=== PATIENT | female | born 1970 | race African-American/Black ===

== ENCOUNTER → 2016-12-17 | Outpatient (CLI) | payer OTHER | END | disposition home or self-care (01) | LOC: CT 10:28 | PROC: BN25ZZZ Computerized Tomography (CT Scan) of Facial Bones (ICD-10-PCS; principal; 2016-12-17) | PROC: BN26ZZZ Computerized Tomography (CT Scan) of Mandible (ICD-10-PCS; 2016-12-17) | DX: S05.11XA Contusion of eyeball and orbital tissues, right eye, initial encounter (principal); X58.XXXD Exposure to other specified factors, subsequent encounter ==

== ENCOUNTER 2016-12-27 18:00 | Emergency (ER) | payer OTHER ==
[~2016-12-27] VITALS: Ht 162.6 cm; Wt 79.4 kg
[2016-12-27 19:16] LABS: BASOPHIL % 0.9 % (0-2); PLATELET COUNT 202 x10^3mcL (130-400); RED CELL DISTRIBUTION WIDTH 12.8 % (11.5-14.5)
[2016-12-27 19:25] LABS: CALCIUM 8.3 mg/dL (8.5-10.1); CREATININE SERUM 1.5 mg/dL (0.6-1.0); POTASSIUM SERUM 4.2 mmol/L (3.5-5.1)
[2016-12-27 19:29] LABS: BILIRUBIN TOTAL 0.4 mg/dL (0.20-1.00); TOTAL PROTEIN, SERUM 6.7 g/dL (6.4-8.2)
[2016-12-27 19:30] LABS: ALBUMIN 3.3 g/dL (3.4-5.0)
[2016-12-27 21:54] VITALS: BP 128/78
== END 2016-12-27 21:54 | disposition home or self-care (01) ==
LOC: ED 18:00
PROVIDERS: Emergency Medicine
DX: R11.10 Vomiting, unspecified (principal); R19.7 Diarrhea, unspecified; E03.9 Hypothyroidism, unspecified; I10 Essential (primary) hypertension; E78.5 Hyperlipidemia, unspecified; Z98.51 Tubal ligation status; Z88.6 Allergy status to analgesic agent
CPT/HCPCS: C9113; J0500; J2270; J2405; J7030

== ENCOUNTER 2017-02-02 14:51 | Inpatient (IN) | payer OTHER ==
[~2017-02-02] VITALS: Ht 162.6 cm; Wt 80.1 kg
[2017-02-02 16:36] LABS: BASOPHIL % 0.5 % (0-2); PLATELET COUNT 227 x10^3mcL (130-400); RED CELL DISTRIBUTION WIDTH 13.4 % (11.5-14.5)
[2017-02-02 16:49] LABS: CALCIUM 9.3 mg/dL (8.5-10.1); CARBON DIOXIDE 26.1 mmol/L (21-32); CHLORIDE SERUM 108 mmol/L (98-107); CREATININE SERUM 0.8 mg/dL (0.6-1.0); GFR1 > 60 mL/min; GLUCOSE SERUM 95 mg/dL (74-106); POTASSIUM SERUM 3.5 mmol/L (3.5-5.1); SODIUM SERUM 143 mmol/L (136-145)
[2017-02-02 16:54] LABS: ALBUMIN 4.1 g/dL (3.4-5.0); ALKALINE PHOSPHATASE 64 U/L (46-116); ALT/SGPT 27 U/L (14-59); AST/SGOT 16 U/L (15-37); BILIRUBIN TOTAL 0.56 mg/dL (0.20-1.00); MAGNESIUM 1.9 mg/dL (1.8-2.4); TOTAL PROTEIN, SERUM 7.5 g/dL (6.4-8.2)
[2017-02-02] MEDS ORDERED: ATENOLOL50 MG PO (18:28)
[2017-02-02] MEDS ORDERED: LEVOXYL0.088 MG PO (18:28)
[2017-02-02 20:19] VITALS: BP 144/89
[2017-02-02 20:22] VITALS: Ht 162.6 cm; Wt 80.1 kg
[2017-02-02 20:23] LABS: PHOSPHOROUS 3.3 mg/dL (2.5-4.9)
[2017-02-02 20:32] LABS: CHOLESTEROL/HDL RATIO 2.3
[2017-02-02 20:45] LABS: FREE T4 0.98 ng/dL (0.76-1.46); FREE THYROXINE INDEX 2.8 ug/dL (1.4-4.5); T4(THYROXINE) 7.5 ug/dL (4.7-13.3)
[2017-02-02 20:50] LABS: T3 TOTAL 0.8 ng/mL
[2017-02-02] MEDS ORDERED: BUSPIRONE HCL15 MG PO (21:12)
[2017-02-02] MEDS ORDERED: KLONOPIN2 MG PO (21:12)
[2017-02-02] MEDS ORDERED: AMBIEN5 MG PO (21:13)
[2017-02-02] MEDS ORDERED: CARISOPRODOL350 MG PO (21:14)
[2017-02-02 23:38] VITALS: BP 154/93
[2017-02-03 05:20] VITALS: BP 154/91
[2017-02-03 06:03] LABS: microscopic required? NO
[2017-02-03 06:16] LABS: CALCIUM 8.5 mg/dL (8.5-10.1); CHLORIDE SERUM 108 mmol/L (98-107); CREATININE SERUM 0.8 mg/dL (0.6-1.0); GFR1 > 60 mL/min; GLUCOSE SERUM 97 mg/dL (74-106); POTASSIUM SERUM 3.6 mmol/L (3.5-5.1); SODIUM SERUM 142 mmol/L (136-145)
[2017-02-03 07:10] LABS: UA SPECIFIC GRAVITY <=1.005 (1.005-1.035); urine erythrocyte NEGATIVE (NEGATIVE)
[2017-02-03 07:31] LABS: AMPHETAMINE QUAL UR NONE DETECTED (NEG <=1000)
[2017-02-03 09:15] VITALS: BP 166/93
[2017-02-03 13:25] VITALS: BP 182/105
[2017-02-03 17:52] VITALS: BP 163/101
[2017-02-03 18:43] VITALS: BP 134/85
[2017-02-03 21:38] VITALS: BP 131/93
[2017-02-04 05:28] VITALS: BP 139/96
[2017-02-04 06:19] LABS: CALCIUM 8.7 mg/dL (8.5-10.1); CARBON DIOXIDE 25.1 mmol/L (21-32); CHLORIDE SERUM 106 mmol/L (98-107); CREATININE SERUM 0.8 mg/dL (0.6-1.0); GFR1 > 60 mL/min; GLUCOSE SERUM 98 mg/dL (74-106); MAGNESIUM 1.9 mg/dL (1.8-2.4); PHOSPHOROUS 4.3 mg/dL (2.5-4.9); POTASSIUM SERUM 3.5 mmol/L (3.5-5.1); SODIUM SERUM 140 mmol/L (136-145)
[2017-02-04 06:29] LABS: BASOPHIL % 0.6 % (0-2); PLATELET COUNT 207 x10^3mcL (130-400); RED CELL DISTRIBUTION WIDTH 13.6 % (11.5-14.5)
[2017-02-04 10:00] VITALS: BP 141/90
[2017-02-04 14:51] VITALS: BP 149/94
[2017-02-04] MEDS ORDERED: TEN50 PO (17:15)
[2017-02-04] MEDS ORDERED: NOR5 PO (17:16)
[2017-02-04] MEDS ORDERED: ZESTRIL5 MG PO (17:17)
[2017-02-04] MEDS ORDERED: CYCLOBENZAPRINE5 MG PO ×2 (17:18→17:20)
[2017-02-04 17:23] VITALS: BP 149/94
[2017-02-04] MEDS ORDERED: ESGIC CAPSULE1 EACH PO ×2 (18:04→18:06)
[2017-02-04 18:25] VITALS: BP 144/86
== END 2017-02-04 19:02 | disposition home or self-care (01) | DRG 79 ==
LOC: ED 14:51 → DU 18:01
PROVIDERS: Emergency Medicine; Family Medicine; ADMIT Family Medicine
PROC: 7W02X1Z Osteopathic Treatment of Thoracic Region using Fascial Release (ICD-10-PCS; principal; 2017-02-03)
PROC: 7W02X4Z Osteopathic Treatment of Thoracic Region using Indirect Forces (ICD-10-PCS; 2017-02-03)
DX: I67.4 Hypertensive encephalopathy (principal); G89.29 Other chronic pain; M54.5 Low back pain; F41.1 Generalized anxiety disorder; F45.42 Pain disorder with related psychological factors; M99.02 Segmental and somatic dysfunction of thoracic region; M99.00 Segmental and somatic dysfunction of head region; M99.01 Segmental and somatic dysfunction of cervical region; I65.23 Occlusion and stenosis of bilateral carotid arteries; G47.00 Insomnia, unspecified; E03.9 Hypothyroidism, unspecified; E87.8 Other disorders of electrolyte and fluid balance, not elsewhere classified; E66.9 Obesity, unspecified; Z68.30 Body mass index [BMI] 30.0-30.9, adult; F17.210 Nicotine dependence, cigarettes, uncomplicated
CPT/HCPCS: 82962; 83880; 84439; 97116-GP; 97530-GP; J0360; J2270; J2405; J2765; J3010; J3490; J7030; Q0092

== ENCOUNTER 2017-12-20 13:35 | Emergency (ER) | payer OTHER ==
[~2017-12-20] VITALS: Ht 162.6 cm; Wt 77.7 kg
[~2017-12-20 13:35] MED LIST: AMBIEN5 MG PO; ATENOLOL50 MG PO; BUSPIRONE HCL15 MG PO; CARISOPRODOL350 MG PO; CYCLOBENZAPRINE5 MG PO; ESGIC CAPSULE1 EACH PO; KLONOPIN2 MG PO; LEVOXYL0.088 MG PO; NOR5 PO; TEN50 PO; ZESTRIL5 MG PO
[2017-12-20 13:54] VITALS: Ht 162.6 cm; Wt 77.7 kg
[2017-12-20 15:33] VITALS: BP 135/94
== END 2017-12-20 15:34 | disposition home or self-care (01) ==
LOC: ED 13:35
DX: M79.7 Fibromyalgia (principal); I10 Essential (primary) hypertension; E03.9 Hypothyroidism, unspecified; F17.210 Nicotine dependence, cigarettes, uncomplicated; Z90.49 Acquired absence of other specified parts of digestive tract; Z90.710 Acquired absence of both cervix and uterus; Z88.1 Allergy status to other antibiotic agents; Z88.5 Allergy status to narcotic agent
CPT/HCPCS: 99406

== ENCOUNTER 2018-02-15 15:29 | Emergency (ER) | payer OTHER ==
[~2018-02-15] VITALS: Ht 165.1 cm; Wt 81.6 kg
[2018-02-15 15:50] VITALS: Ht 165.1 cm; Wt 81.6 kg
[2018-02-15 17:26] LABS: BASOPHIL % 0.9 % (0-2); PLATELET COUNT 277 x10^3mcL (130-400); RED CELL DISTRIBUTION WIDTH 14.2 % (11.5-14.5)
[2018-02-15 17:36] LABS: CALCIUM 8.6 mg/dL (8.5-10.1); CARBON DIOXIDE 31.9 mmol/L (21-32); CREATININE SERUM 1.3 mg/dL (0.6-1.0); POTASSIUM SERUM 4.1 mmol/L (3.5-5.1)
[2018-02-15 17:41] LABS: ALBUMIN 3.5 g/dL (3.4-5.0); BILIRUBIN TOTAL 0.32 mg/dL (0.20-1.00); TOTAL PROTEIN, SERUM 6.7 g/dL (6.4-8.2)
[2018-02-15 17:46] LABS: FREE T4 1.1 ng/dL (0.76-1.46); T4(THYROXINE) 8.5 ug/dL (4.7-13.3)
[2018-02-15 18:06] LABS: microscopic required? NO
[2018-02-15 18:17] LABS: urine erythrocyte NEGATIVE (NEGATIVE)
[2018-02-15 18:27] LABS: AMPHETAMINE QUAL UR NONE DETECTED (See below)
[2018-02-15 18:45] LABS: T3 TOTAL 1.16 ng/mL
[2018-02-15 18:46] VITALS: BP 106/71
== END 2018-02-15 19:01 | disposition home or self-care (01) ==
LOC: ED 15:29
PROVIDERS: Emergency Medicine
DX: R60.0 Localized edema (principal); G89.29 Other chronic pain; M79.7 Fibromyalgia; I10 Essential (primary) hypertension
CPT/HCPCS: 36415; 84439

== ENCOUNTER 2018-03-07 18:22 | Emergency (ER) | payer OTHER ==
[~2018-03-07] VITALS: Ht 162.6 cm; Wt 72.6 kg
[2018-03-07 18:28] VITALS: Ht 162.6 cm; Wt 72.6 kg
[2018-03-07 19:52] LABS: BASOPHIL % 0.8 % (0-2); PLATELET COUNT 242 x10^3mcL (130-400)
[2018-03-07 20:09] LABS: RED CELL DISTRIBUTION WIDTH 14.6 % (11.5-14.5)
[2018-03-07 20:17] LABS: CALCIUM 8.4 mg/dL (8.5-10.1); CHLORIDE SERUM 109 mmol/L (98-107); CREATININE SERUM 0.9 mg/dL (0.6-1.0); GFR1 > 60 mL/min; GLUCOSE SERUM 102 mg/dL (74-106); POTASSIUM SERUM 3.9 mmol/L (3.5-5.1); SODIUM SERUM 145 mmol/L (136-145)
[2018-03-07 20:21] LABS: ALBUMIN 3.5 g/dL (3.4-5.0); ALKALINE PHOSPHATASE 59 U/L (46-116); AST/SGOT 13 U/L (15-37); BILIRUBIN TOTAL 0.26 mg/dL (0.20-1.00); TOTAL PROTEIN, SERUM 6.8 g/dL (6.4-8.2)
[2018-03-07 20:31] LABS: ALT/SGPT 17 U/L (14-59)
[2018-03-07 21:35] VITALS: BP 140/98
== END 2018-03-07 21:35 | disposition home or self-care (01) ==
LOC: ED 18:22
PROVIDERS: Emergency Medicine
DX: R51 Headache (principal); R55 Syncope and collapse; M79.7 Fibromyalgia; I10 Essential (primary) hypertension; Z88.0 Allergy status to penicillin; Z88.6 Allergy status to analgesic agent
CPT/HCPCS: J0780; J1200; J7030

== ENCOUNTER → 2018-10-06 | Day surgery (SDC) | payer OTHER ==
[2018-09-29 11:05] LABS: CALCIUM 8.8 mg/dL (8.5-10.1); CREATININE SERUM 1.1 mg/dL (0.6-1.0)
[2018-09-29 11:17] LABS: PLATELET COUNT 280 x10^3mcL (130-400); RED CELL DISTRIBUTION WIDTH 14.3 % (11.5-14.5)
[2018-09-29 13:51] LABS: ATYPICAL LYMPH 1 %; BAND NEUTROPHIL 3 % (0-10); BASOPHIL 0 % (0-2); MONOCYTE 8 % (0-7); SEGMENTED NEUTROPHILS 44 % (37-75)
[2018-09-29 13:52] LABS: PLATELET MORPHOLOGY GIANT PLATELET SEEN; rbc morphology (normal/abnorm) NORMAL (NORMAL)
[~2018-10-06] VITALS: Ht 162.6 cm; Wt 72.6 kg
[2018-10-06 07:00] VITALS: BP 121/82
[2018-10-06 09:42] VITALS: BP 132/74
== END | disposition home or self-care (01) ==
LOC: DS 06:00 → OR 07:30
PROVIDERS: Podiatrist Foot & Ankle Surgery
PROC: 0JBP0ZZ Excision of Left Lower Leg Subcutaneous Tissue and Fascia, Open Approach (ICD-10-PCS; principal; 2018-10-06 07:30)
DX: L97.421 Non-pressure chronic ulcer of left heel and midfoot limited to breakdown of skin (principal); M21.372 Foot drop, left foot; S90.562S Insect bite (nonvenomous), left ankle, sequela; B95.62 Methicillin resistant Staphylococcus aureus infection as the cause of diseases classified elsewhere; J45.909 Unspecified asthma, uncomplicated; E78.5 Hyperlipidemia, unspecified; I10 Essential (primary) hypertension; E03.9 Hypothyroidism, unspecified; F17.211 Nicotine dependence, cigarettes, in remission; W57.XXXS Bitten or stung by nonvenomous insect and other nonvenomous arthropods, sequela
CPT/HCPCS: J2175; J2250; J2405; J2704; J3010; J3490; J7120

== ENCOUNTER 2019-05-17 22:59 | Inpatient (IN) | payer OTHER ==
[~2019-05-17] VITALS: Ht 162.6 cm; Wt 102.5 kg
[2019-05-17 23:05] VITALS: Ht 162.6 cm; Wt 102.5 kg
--- NOTE | 2019-05-17 23:06 | NUR ---
EKG IN PROGRESS IN TRIAGE.
--- NOTE | 2019-05-17 23:40 | NUR ---
PT PRESENTS TO ED C/O TIGHTNESS IN HER CHEST AND IN HER ARM SINCE THIS AM. PT STATES SHE HAS FELT THIS WAY BEFORE AND SHE WAS ADMITTED TO THE HOSPITAL LAST TIME THIS HAPPENED. PT STATES THAT SHE FEELS SOB WELL AND STATES IT IS WORSE WITH EXERTION AND WHILE LAYING DOWN. PT STATES THE PAIN RADIATES DOWN HER L ARM, PT AXO X4. PT SPEAKING IN CLEAR AND FULL SENTENCES. PT CONNECTED TO FULL CM AND PULSE OX MONITORS. PT STATES SHE QUIT SMOKING ABOUT 8 MONTHS AGO HOWEVER SHE USUALLY DOES FEEL SOB WHILE SHE WALKS. AWAITING MSE AT THIS TIME
[2019-05-17 23:47] LABS: BASOPHIL % 0.6 % (0-2); CALCIUM 8.5 mg/dL (8.5-10.1); CARBON DIOXIDE 33.3 mmol/L (21-32); CHLORIDE SERUM 108 mmol/L (98-107); GFR1 > 60 mL/min; GLUCOSE SERUM 93 mg/dL (74-106); PLATELET COUNT 233 x10^3mcL (130-400); SODIUM SERUM 145 mmol/L (136-145)
[2019-05-17 23:52] LABS: ALKALINE PHOSPHATASE 64 U/L (46-116); ALT/SGPT 17 U/L (14-59); AST/SGOT 11 U/L (15-37); BILIRUBIN TOTAL 0.1 mg/dL (0.20-1.00); TOTAL PROTEIN, SERUM 7.4 g/dL (6.4-8.2)
[2019-05-17 23:57] LABS: ALBUMIN 3.2 g/dL (3.4-5.0)
[2019-05-17 23:59] LABS: RED CELL DISTRIBUTION WIDTH 14.8 % (11.5-14.5)
[2019-05-18 01:12] LABS: PHOSPHOROUS 4.7 mg/dL (2.5-4.9)
[2019-05-18 01:16] LABS: T3 TOTAL 1.01 ng/mL
[2019-05-18] MEDS ORDERED: LOSARTAN POTASS50 M1 PO (01:21)
[2019-05-18] MEDS ORDERED: ATENOLOL50 MG PO (01:21)
[2019-05-18] MEDS ORDERED: DEPAKOTE500 MG PO (01:22)
[2019-05-18] MEDS ORDERED: LEVOXYL0.05 MG PO (01:22)
[2019-05-18 01:23] LABS: FREE T4 0.72 ng/dL (0.76-1.46); FREE THYROXINE INDEX 1.9 ug/dL (1.4-4.5); T4(THYROXINE) 6.2 ug/dL (4.7-13.3)
--- NOTE | 2019-05-18 01:32 | NUR ---
REPORT GIVEN TO BRIAN CONNELLY
--- NOTE | 2019-05-18 01:50 | NUR ---
RECEIVED PT FROM PREVIOUS SHIFT NURSE. PT AOX4, C/O VARELA, NO DIZZINESS. ON TELE #17, NSR. C/O CHEST PRESSURE. DENIES SOB/DIFFICULTY BREATHING. SOB NOTED UPON EXERTION. IV TO L. WRIST, INTACT AND PATENT. AT BEDSIDE. BED IN LOWEST POSITION. CALL LIGHT WITHIN REACH. WILL CONTINUE TO MONITOR.
[2019-05-18 02:00] VITALS: BP 127/89
[2019-05-18 04:49] VITALS: BP 106/70
--- NOTE | 2019-05-18 05:13 | NUR ---
PT RESTING IN BED. RR EVEN AND UNLABORED. IN NO ACUTE DISTRESS. CALL LIGHT WITHIN REACH. BED IN LOWEST POSITION. WILL CONTINUE TO MONITOR.
--- NOTE | 2019-05-18 07:30 | NUR ---
PT ENDORSE TO ME THIS MORNING, LAYING IN BED RESTING.AA/O X4. BREATHING EVEN AND UNLABORED ON RA, NO ACUTE RESP DISTRESS OR SOB NOTED. TELE 17 SR 96 HR. DENIES ANY CP OR PRESSURE AT THIS TIME. BOWEL SOUNDS ACTIVE IN ALL FOUR QUADS, LAST BM 05/17. VOIDS FREELY. AMB. IV TO THE L WIRIST INFUSING AT 80ML/HR, NO REDNESS OR SWELLING NOTED. WILL CONTINUE TO MONITOR.
[2019-05-18 07:54] VITALS: BP 122/82
--- NOTE | 2019-05-18 08:04 | NUR ---
PT IS OF MILD DISCOMFORT TO R RIB AREA. REFUSING NORCO 5, DR. MONSIVAIS PAGED REGRADING PAIN MED. WILL CONTINUE TO MONITOR.
--- NOTE | 2019-05-18 08:22 | NUR ---
PT IS C/O CHEST PAIN/ DISCOMFORT 03/18, MEDICATED WITH X1 NITRO SL. WILL CONTINIE TO MONITOR. DR. LOI AMEZCUA.
--- NOTE | 2019-05-18 08:29 | NUR ---
PT STATED CP / PRESSURE DID GET BETTER WITH NITROSTAT.
[2019-05-18 08:54] LABS: BASOPHIL % 0.7 % (0-2); PLATELET COUNT 219 x10^3mcL (130-400)
[2019-05-18 09:16] LABS: CALCIUM 8.2 mg/dL (8.5-10.1); CARBON DIOXIDE 30.1 mmol/L (21-32); CHLORIDE SERUM 107 mmol/L (98-107); CREATININE SERUM 0.8 mg/dL (0.6-1.0); GFR1 > 60 mL/min; GLUCOSE SERUM 93 mg/dL (74-106); MAGNESIUM 2.2 mg/dL (1.8-2.4); PHOSPHOROUS 4.6 mg/dL (2.5-4.9); POTASSIUM SERUM 4.1 mmol/L (3.5-5.1); SODIUM SERUM 144 mmol/L (136-145)
[2019-05-18 09:17] LABS: CHOLESTEROL/HDL RATIO 2.6; RED CELL DISTRIBUTION WIDTH 14.6 % (11.5-14.5)
--- NOTE | 2019-05-18 09:59 | NUR ---
PT C/O OF CP / PRESSURE 8/10, O2 AT 95 % RA, BP 100/66 MAP 78, HR 87. NITROSTAT SL GIVEN. DR. MONSIVAIS AWARE.
[2019-05-18 10:28] LABS: microscopic required? NO
--- NOTE | 2019-05-18 10:36 | NUR ---
PER DR. MONSIVAIS ORDERS GAVE PT MORPHINE IVP 1MG FOR CP AND DISCOMFORT 03/18. WILL CONTINUE TO MONITOR.
[2019-05-18 10:42] LABS: UA SPECIFIC GRAVITY 1.025 (1.005-1.035); urine erythrocyte NEGATIVE (NEGATIVE)
[2019-05-18 10:51] LABS: AMPHETAMINE QUAL UR NONE DETECTED (See below)
[2019-05-18 11:45] VITALS: BP 102/64
--- NOTE | 2019-05-18 15:27 | NUR ---
PT C/O OF LOWER LIP FEELING TINGLING AND 8/10 PAIN TO THE MIDDLE OF CHEST. DR. MONSIVAIS AWARE/ MEDICATED PER EMAR. WILL CONTINUE TO MONITOR. RIPRAP WORKER IN ROOM.
[2019-05-18 16:01] VITALS: BP 105/74
--- NOTE | 2019-05-18 18:54 | NUR ---
PT C/O GEN PAIN 03/18, MEDICATED PER EMAR. WILL ENDORSE TO INCOMING RN.
--- NOTE | 2019-05-18 19:20 | NUR ---
RECEIVED PT FROM PREVIOUS SHIFT NURSE. PT AOX4, DENIES VARELA/DIZZINESS AT THIS TIME. ON TELE #17, SR, HR 88. DENIES CP/PRESSURE AT THIS TIME. DENIES SOB/DIFFICULTY BREATHING, ON RA. SOB UPON EXERTION. IV TO L.WRIST, INTACT AND PATENT. BED IN LOWEST POSITION. CALL LIGHT WITHIN REACH. WILL CONTINUE TO MONITOR.
[2019-05-18 19:49] VITALS: BP 113/76
--- NOTE | 2019-05-19 03:00 | NUR ---
PT RESTING IN BED. RR EVEN AND UNLABORED. IN NO ACUTE DISTRESS. CALL LIGHT WITHIN REACH. BED IN LOWEST POSITION. WILL CONTINUE TO MONITOR.
[2019-05-19 05:07] VITALS: BP 107/69
--- NOTE | 2019-05-19 07:20 | NUR ---
PT IN BED, IN NO ACUTE DISTRESS, AXOX4, VERBAL, ABLE TO MAKE NEEDS KNOWN, GUARDS AT BEDSIDE, CALM AND COOPERATIVE AT THIS TIME, PERRLA, [place], NO REDNESS/DRAINAGE, NO FACIAL DROOP/SLURRED SPEECH, RESP EVEN, RA, NO SOB/COUGH, CHEST RISE SYMMETRICALLY, TELE #7, NSR W/ PAC'S, DENIED CP/PALPITATION/VARELA, DENIED N/V/D, ABD ROUND AND NONTENDER TO TOUCH, BS ACTIVE X 4, PALP PULSES, CAP REFILL < 3S, CONTINENT, AMBULATORY, IV PATENT AND INFUSING WELL, DRESSING CDI, SEE SKIN ASSESSMENT, SKIN C/D/W, CUFF TO (L) ANKLE, ALL NEEDS ADDRESSED AT THIS TIME, SAFETY PROTOCOL MAINTAINED, CONTINUE TO MONITOR
--- NOTE | 2019-05-19 07:21 | NUR ---
RECEIVED REPORT FROM BETH RN AT BEDSIDE, PT IN BED IN NO ACUTE DISTRESS
--- NOTE | 2019-05-19 07:51 | NUR ---
PT IN BED, IN NO ACUTE DISTRESS, AXOX4, VERBAL, ABLE TO MAKE NEEDS KNOWN, CALM AND COOPERATIVE AT THIS TIME, PERRLA, NO REDNESS/DRAINAGE, NO FACIAL DROOP/SLURRED SPEECH, RESP EVEN, RA, NO SOB/COUGH, LUNGS CTA, CHEST RISE SYMMETRICALLY, TELE #71, NSR, DENIED CP/PALPITATION/VARELA, DENIED N/V/D, ABD ROUND AND NONTENDER TO TOUCH, BS ACTIVE X 4, PALP PULSES, CAP REFILL < 3S, CONTINENT, AMBULATORY, IV PATENT AND INFUSING WELL, DRESSING CDI, SEE SKIN ASSESSMENT, SKIN C/D/W, CUFF TO (L) ANKLE, ALL NEEDS ADDRESSED AT THIS TIME, SAFETY PROTOCOL MAINTAINED, CONTINUE TO MONITOR
[2019-05-19 08:37] VITALS: BP 105/76
[2019-05-19 08:54] LABS: BASOPHIL % 0.5 % (0-2); PLATELET COUNT 216 x10^3mcL (130-400); RED CELL DISTRIBUTION WIDTH 14.5 % (11.5-14.5)
[2019-05-19 08:59] LABS: CALCIUM 8.1 mg/dL (8.5-10.1); CARBON DIOXIDE 28.6 mmol/L (21-32); CHLORIDE SERUM 106 mmol/L (98-107); CREATININE SERUM 0.8 mg/dL (0.6-1.0); GFR1 > 60 mL/min; GLUCOSE SERUM 100 mg/dL (74-106); MAGNESIUM 2.1 mg/dL (1.8-2.4); PHOSPHOROUS 4.1 mg/dL (2.5-4.9); SODIUM SERUM 143 mmol/L (136-145)
--- NOTE | 2019-05-19 09:03 | NUR ---
AM MEDS GIVEN PER MD ORDRE VIA EMAR, TOLERATED WELL, NO ASE NOTED AT THIS TIME, EDUCATION R/T MED, ASE AND MONITOR GIVEN TO PT, VERBALLY UNDERSTANDING, ALL NEEDS ADDRESSED AT THIS TIME, CONTINUE TO MONITOR
--- NOTE | 2019-05-19 12:47 | NUR ---
PT REMOVED TELE #17, SAID CARDIOLOGOST DC PT NOW AND NO NEED FOR TELE MONITOR, TELE RETURNED TO NAIDA NEWMAN PT IN NO ACUTE DISTRESS
[2019-05-19] MEDS ORDERED: HYDROCHLOROTHIA25 MG PO (12:57)
[2019-05-19 13:02] VITALS: BP 105/76
--- NOTE | 2019-05-19 13:09 | NUR ---
PT WALKED ALONG HALLWAY, IN NO ACUTE DISTRESS
[2019-05-19] MEDS ORDERED: APAP/HYDROCODON1 T13 PO (13:12)
--- NOTE | 2019-05-19 13:46 | NUR ---
DC PAPER SIGNED AND KEPT IN CHART, PT MADE AWARE OF NEW PRESCRIPTION SENT TO [facility], DR ZAMORA DISCUSS PT MED AND CONDITION, QUESTION ASKED AND ANSWERED, NO FURTHER CONCERN NEEDED WHEN ASKED, IV REMOVED, IV CATH TIP PATENT, NO ACTIVE BLEEDING NOTED, MOTHER AT BEDSIDE, MOTHER SAID WILL DRIVE PT HOME AND P/U MED FOR PT AT [facility] NEAR HOUSE, PT ASSISTED TO [facility] VIA , PT LEFT IN NO ACUTE DISTRESS
== END 2019-05-19 13:51 | disposition home or self-care (01) | DRG 880 ==
LOC: ED 22:59 → DU 05-18 00:20
PROVIDERS: ADMIT Family Medicine
DX: F41.9 Anxiety disorder, unspecified (principal); E44.1 Mild protein-calorie malnutrition; E87.8 Other disorders of electrolyte and fluid balance, not elsewhere classified; K21.9 Gastro-esophageal reflux disease without esophagitis; I10 Essential (primary) hypertension; M54.2 Cervicalgia; M54.9 Dorsalgia, unspecified; G89.29 Other chronic pain; M79.7 Fibromyalgia; E03.9 Hypothyroidism, unspecified; Z68.39 Body mass index [BMI] 39.0-39.9, adult; Z87.891 Personal history of nicotine dependence
CPT/HCPCS: 83880; 84439; 90658; 90732; G0378; J2270; J7030; Q0092

== ENCOUNTER 2019-05-23 18:26 | Emergency (ER) | payer OTHER ==
[~2019-05-23] VITALS: Ht 162.6 cm; Wt 104.3 kg
[~2019-05-23 18:26] MED LIST changes: +APAP/HYDROCODON1 T13 PO; +DEPAKOTE500 MG PO; +HYDROCHLOROTHIA25 MG PO; +LEVOXYL0.05 MG PO; +LOSARTAN POTASS50 M1 PO
[2019-05-23 18:29] VITALS: Ht 162.6 cm; Wt 104.3 kg
[2019-05-23 19:02] LABS: BASOPHIL % 0.9 % (0-2); PLATELET COUNT 219 x10^3mcL (130-400); RED CELL DISTRIBUTION WIDTH 14.6 % (11.5-14.5)
[2019-05-23 19:11] LABS: CALCIUM 7.6 mg/dL (8.5-10.1); CARBON DIOXIDE 27.7 mmol/L (21-32); CHLORIDE SERUM 103 mmol/L (98-107); CREATININE SERUM 1.5 mg/dL (0.6-1.0); GFR1 39 mL/min; GLUCOSE SERUM 95 mg/dL (74-106); POTASSIUM SERUM 3.8 mmol/L (3.5-5.1); SODIUM SERUM 142 mmol/L (136-145)
[2019-05-23 19:15] LABS: ALKALINE PHOSPHATASE 68 U/L (46-116); ALT/SGPT 15 U/L (14-59); AST/SGOT 20 U/L (15-37); BILIRUBIN TOTAL 0.16 mg/dL (0.20-1.00); TOTAL PROTEIN, SERUM 7.5 g/dL (6.4-8.2)
[2019-05-23 19:16] LABS: ALBUMIN 3.1 g/dL (3.4-5.0)
[2019-05-23 19:37] VITALS: BP 111/79
== END 2019-05-23 19:37 | disposition home or self-care (01) ==
LOC: ED 18:26
PROVIDERS: Emergency Medicine
DX: T40.601A Poisoning by unspecified narcotics, accidental (unintentional), initial encounter (principal); R55 Syncope and collapse; G89.29 Other chronic pain; M54.2 Cervicalgia; M54.9 Dorsalgia, unspecified; Z88.0 Allergy status to penicillin; Z88.6 Allergy status to analgesic agent; Y92.89 Other specified places as the place of occurrence of the external cause
CPT/HCPCS: 82962; G0480; J2310; J2405

== ENCOUNTER 2019-08-12 15:56 | Emergency (ER) | payer OTHER ==
[~2019-08-12] VITALS: Ht 160 cm; Wt 107.5 kg
[2019-08-12 16:00] VITALS: BP 119/75; Ht 160 cm; Wt 107.5 kg
[2019-08-12 17:24] LABS: BASOPHIL % 0.4 % (0-2); PLATELET COUNT 255 x10^3mcL (130-400)
[2019-08-12 17:25] LABS: RED CELL DISTRIBUTION WIDTH 16.2 % (11.5-14.5)
[2019-08-12 17:30] LABS: CALCIUM 8.5 mg/dL (8.5-10.1); CARBON DIOXIDE 31.7 mmol/L (21-32); CREATININE SERUM 1.1 mg/dL (0.6-1.0)
[2019-08-12 17:35] LABS: BILIRUBIN TOTAL 0.3 mg/dL (0.20-1.00); TOTAL PROTEIN, SERUM 7.3 g/dL (6.4-8.2)
[2019-08-12 17:40] LABS: ALBUMIN 3.3 g/dL (3.4-5.0)
== END 2019-08-12 18:57 | disposition home or self-care (01) ==
LOC: ED 15:56
PROVIDERS: Emergency Medicine
DX: R10.32 Left lower quadrant pain (principal); J44.9 Chronic obstructive pulmonary disease, unspecified; I10 Essential (primary) hypertension; M79.7 Fibromyalgia; K58.9 Irritable bowel syndrome, unspecified; Z88.1 Allergy status to other antibiotic agents; Z88.6 Allergy status to analgesic agent
CPT/HCPCS: 36415

== ENCOUNTER 2019-08-18 09:53 | Emergency (ER) | payer OTHER ==
[~2019-08-18] VITALS: Ht 162.6 cm; Wt 109.8 kg
[2019-08-18 10:25] VITALS: BP 124/88; Ht 162.6 cm; Wt 109.8 kg
== END 2019-08-18 11:37 | disposition home or self-care (01) ==
LOC: ED 09:53
DX: M54.16 Radiculopathy, lumbar region (principal); G89.29 Other chronic pain; M79.7 Fibromyalgia; I10 Essential (primary) hypertension; E03.9 Hypothyroidism, unspecified; J44.9 Chronic obstructive pulmonary disease, unspecified; E66.01 Morbid (severe) obesity due to excess calories; Z68.41 Body mass index [BMI] 40.0-44.9, adult